=== PATIENT | male | born 1975 | race Caucasian/White ===

== ENCOUNTER 2019-01-25 10:55 | Day surgery (SDC) | payer OTHER ==
[~2019-01-25] VITALS: Ht 177.8 cm; Wt 106.4 kg
--- NOTE | 2019-01-25 11:26 | NUR ---
History, Chart, Medications and Allergies reviewed before start of procedure. Patient States Post-Procedure ride home has been arranged.
[2019-01-25] MEDS ORDERED: SUCR1 PO (11:44)
--- NOTE | 2019-01-25 12:54 | NUR ---
01/25/19 1254 Meredith Reese PATIENT DETERMINED TO BE ASA APPROPRIATE FOR PROPOFOL SEDATION PRIOR TO START OF PROCEDURE BY DR. GARCIA. 3-LEAD EKG REVIEWED WITH PHYSICIAN PRIOR TO START OF PROCEDURE. PATIENT CONFIRMS NPO STATUS AND AGREES WITH SCHEDULED PROCEDURE. History, Chart, Medications and Allergies reviewed before start of procedure. MONITOR INTACT WITH CONTINUOUS PULSE OXIMETRY AND INTERMITTENT BP. O2 VIA N/C INTACT THROUGHOUT SEDATION/PROCEDURE, 3 L. Bite Block Placed IMMEDIATELY PRESEDATION.
--- NOTE | 2019-01-25 13:36 | NUR ---
NO REDNESS NOTED AT INFILTRATION SITE, NOTICED RIGHT AWAY THAT HAD LOST IV WITH DOSE OF 20 MG PROPOFOL. INSTRUCTIONS GIVEN TO PATIENT AND SPOUSE TO MONITOR SITE AND REPORT TO PHYSICIAN IF CONCERNS.
== END 2019-01-25 23:49 | disposition home or self-care (01) ==
LOC: ORD 10:55 → ORSCMMR 10:55 → ORD 12:30
PROVIDERS: Internal Medicine Gastroenterology
PROC: 0DB98ZX Excision of Duodenum, Via Natural or Artificial Opening Endoscopic, Diagnostic (ICD-10-PCS; principal; 2019-01-25 12:30)
PROC: 0DB68ZX Excision of Stomach, Via Natural or Artificial Opening Endoscopic, Diagnostic (ICD-10-PCS; principal; 2019-01-25 12:30)
DX: D50.9 Iron deficiency anemia, unspecified (principal); K25.9 Gastric ulcer, unspecified as acute or chronic, without hemorrhage or perforation; K29.80 Duodenitis without bleeding; F17.220 Nicotine dependence, chewing tobacco, uncomplicated; R10.13 Epigastric pain; Z79.899 Other long term (current) drug therapy
CPT/HCPCS: 88305; 88342; J2704; J7120

== ENCOUNTER 2019-01-27 18:18 | Emergency (ER) | payer OTHER ==
[~2019-01-27] VITALS: Ht 177.8 cm; Wt 106.6 kg
[~2019-01-27 18:18] MED LIST: SUCR1 PO
[2019-01-27 19:16] LABS: BASOPHILS ABSOLUTE AUTO 0.06 K/mm3 (0.00-0.23); BASOPHILS PERCENT AUTO 1 % (0-2); EOSINOPHILS ABSOLUTE AUTO 0.22 K/mm3 (0.00-0.68); EOSINOPHILS PERCENT AUTO 3 % (0-6); Hematocrit 37.8 % (37.0-53.0); Hemoglobin 11.2 g/dL (13.5-17.5); IMMATURE GRAN ABSOLUTE AUTO 0.03 K/mm3 (0.00-0.10); IMMATURE GRAN PERCENT AUTO 0 % (0-1); LYMPHOCYTES ABSOLUTE AUTO 1.72 K/mm3 (0.84-5.20); LYMPHOCYTES PERCENT AUTO 24 % (21-46); MONOCYTES PERCENT AUTO 10 % (4-13); Mean Corpuscular HGB 23.8 pg (26.0-34.0); Mean Corpuscular HGB Conc 29.6 g/dL (31.5-36.5); Mean Corpuscular Volume 80 fL (80-100); Mean Platelet Volume 10.1 fL (9.1-12.4); NEUTROPHILS PERCENT AUTO 63 % (41-73); Platelet Count 340 K/mm3 (150-400); RDW Coefficient Variation 19.8 % (11.7-14.2); RDW Standard Deviation 57.4 fL (35.1-46.3); White Blood Cell Count 7.33 K/mm3 (4.00-11.30)
[2019-01-27 19:35] LABS: Alanine Aminotransfer (ALT/SGP 21 U/L (12-78); Albumin, Blood 3.4 g/dL (3.4-5.0); Albumin/Globulin Ratio 0.8 (0.8-1.8); Alk Phos 79 U/L (50-136); Anion Gap 5 mmol/L (6-16); Aspartate Aminotrans (AST/SGOT 13 U/L (12-37); Bilirubin, Total 0.3 mg/dL (0.1-1.0); Blood Urea Nitrogen 8 mg/dL (8-24); Bun/Creatinine Ratio 7.4 (12.0-20.0); CO2, Blood 26 mmol/L (21-32); Calcium, Blood 8.4 mg/dL (8.5-10.1); Chloride, Blood 106 mmol/L (98-108); Creatinine, Blood 1.08 mg/dL (0.60-1.20); Globulin, Blood 4.5 g/dL (2.2-4.0); Glomerular Filtration Rate >60 (60-); Glucose, Blood 88 mg/dL (70-99); Potassium, Blood 3.3 mmol/L (3.5-5.5); Sodium, Blood 137 mmol/L (136-145); Total Protein, Blood 7.9 g/dL (6.4-8.2)
[2019-01-27] MEDS ORDERED: OMEPRAZOLE MAGN20 M1 PO (20:29)
[2019-01-27 20:50] LABS: Source, Urine Clean Catch
[2019-01-27 20:54] LABS: Bilirubin, Urine Neg (Neg); Blood, Urine Neg (Neg); Glucose Qualitative, Urine Neg (Neg); Ketones, Urine Neg (Neg); Leukocyte Esterase, Urine Neg (Neg); Nitrite, Urine Neg (Neg); Protein, Urine Neg (Neg); Specific Gravity, Urine 1.015 (1.003-1.022); Urobilinogen, Urine 1+ (Normal)
[2019-01-27 20:56] LABS: Appearance, Urine Clear (Clear); Color, Urine Yellow (P-Yellow)
[2019-01-28] MEDS ORDERED: TRAM50 PO (16:23)
[2019-01-28] MEDS ORDERED: Percocet 5-3251 EACH PO (16:23)
[2019-01-28] MEDS ORDERED: ONDA4ODT MM (16:24)
== END 2019-01-27 22:50 | disposition home or self-care (01) ==
LOC: ER 18:18
PROVIDERS: Physician Assistant
DX: K25.9 Gastric ulcer, unspecified as acute or chronic, without hemorrhage or perforation (principal); R07.89 Other chest pain; R05 Cough; Z79.899 Other long term (current) drug therapy
CPT/HCPCS: 36415; 71046; 76705; 80053; 81003; 83690; 85025; 99284-25; A9270

== ENCOUNTER 2019-01-28 10:08 | Emergency (ER) | payer OTHER ==
[~2019-01-28] VITALS: Ht 177.8 cm; Wt 106.6 kg
[~2019-01-28 10:08] MED LIST changes: +OMEPRAZOLE MAGN20 M1 PO
[2019-01-28 12:11] LABS: BASOPHILS ABSOLUTE AUTO 0.05 K/mm3 (0.00-0.23); BASOPHILS PERCENT AUTO 1 % (0-2); EOSINOPHILS ABSOLUTE AUTO 0.17 K/mm3 (0.00-0.68); EOSINOPHILS PERCENT AUTO 3 % (0-6); Hematocrit 39.2 % (37.0-53.0); Hemoglobin 11.5 g/dL (13.5-17.5); IMMATURE GRAN ABSOLUTE AUTO 0.04 K/mm3 (0.00-0.10); IMMATURE GRAN PERCENT AUTO 1 % (0-1); LYMPHOCYTES ABSOLUTE AUTO 1.33 K/mm3 (0.84-5.20); LYMPHOCYTES PERCENT AUTO 20 % (21-46); MONOCYTES ABSOLUTE AUTO 0.72 K/mm3 (0.16-1.47); MONOCYTES PERCENT AUTO 11 % (4-13); Mean Corpuscular HGB 23.8 pg (26.0-34.0); Mean Corpuscular HGB Conc 29.3 g/dL (31.5-36.5); Mean Corpuscular Volume 81 fL (80-100); NEUTROPHILS ABSOLUTE AUTO 4.49 K/mm3 (1.96-9.15); NEUTROPHILS PERCENT AUTO 66 % (41-73); Platelet Count 296 K/mm3 (150-400); RDW Coefficient Variation 19.6 % (11.7-14.2); RDW Standard Deviation 57.8 fL (35.1-46.3); Red Blood Cell Count 4.84 M/mm3 (4.30-5.90)
[2019-01-28 12:32] LABS: Alanine Aminotransfer (ALT/SGP 20 U/L (12-78); Albumin, Blood 3.3 g/dL (3.4-5.0); Albumin/Globulin Ratio 0.8 (0.8-1.8); Alk Phos 83 U/L (50-136); Anion Gap 4 mmol/L (6-16); Aspartate Aminotrans (AST/SGOT 17 U/L (12-37); Bilirubin, Total 0.3 mg/dL (0.1-1.0); Blood Urea Nitrogen 9 mg/dL (8-24); Bun/Creatinine Ratio 7.9 (12.0-20.0); CO2, Blood 27 mmol/L (21-32); Calcium, Blood 8.7 mg/dL (8.5-10.1); Chloride, Blood 106 mmol/L (98-108); Creatinine, Blood 1.14 mg/dL (0.60-1.20); Globulin, Blood 4.4 g/dL (2.2-4.0); Glomerular Filtration Rate >60 (60-); Glucose, Blood 97 mg/dL (70-99); Potassium, Blood 4.1 mmol/L (3.5-5.5); Sodium, Blood 137 mmol/L (136-145); Total Protein, Blood 7.7 g/dL (6.4-8.2)
[2019-01-28] MEDS ORDERED: TRAM50 PO (16:23)
[2019-01-28] MEDS ORDERED: Percocet 5-3251 EACH PO (16:23)
[2019-01-28] MEDS ORDERED: ONDA4ODT MM (16:24)
== END 2019-01-28 16:33 | disposition home or self-care (01) ==
LOC: ER 10:08
PROVIDERS: Physician Assistant
DX: A09 Infectious gastroenteritis and colitis, unspecified (principal); D64.9 Anemia, unspecified; F17.220 Nicotine dependence, chewing tobacco, uncomplicated; Z79.899 Other long term (current) drug therapy
CPT/HCPCS: 36415; 74177; 80053; 83690; 85025; 99284-25; Q9967

== ENCOUNTER 2019-02-02 19:24 | Inpatient (IN) | payer OTHER ==
[~2019-02-02] VITALS: Ht 177.8 cm; Wt 101.6 kg
[~2019-02-02 19:24] MED LIST changes: +ONDA4ODT MM; +Percocet 5-3251 EACH PO; +TRAM50 PO
[2019-02-02 20:44] LABS: BASOPHILS ABSOLUTE AUTO 0.03 K/mm3 (0.00-0.23); BASOPHILS PERCENT AUTO 1 % (0-2); EOSINOPHILS ABSOLUTE AUTO 0.15 K/mm3 (0.00-0.68); EOSINOPHILS PERCENT AUTO 3 % (0-6); Hematocrit 36.4 % (37.0-53.0); Hemoglobin 10.9 g/dL (13.5-17.5); IMMATURE GRAN ABSOLUTE AUTO 0.01 K/mm3 (0.00-0.10); IMMATURE GRAN PERCENT AUTO 0 % (0-1); LYMPHOCYTES ABSOLUTE AUTO 1.12 K/mm3 (0.84-5.20); LYMPHOCYTES PERCENT AUTO 20 % (21-46); MONOCYTES ABSOLUTE AUTO 0.51 K/mm3 (0.16-1.47); MONOCYTES PERCENT AUTO 9 % (4-13); Mean Corpuscular HGB 23.5 pg (26.0-34.0); Mean Corpuscular HGB Conc 29.9 g/dL (31.5-36.5); Mean Corpuscular Volume 78 fL (80-100); NEUTROPHILS PERCENT AUTO 68 % (41-73); Platelet Count 333 K/mm3 (150-400); RDW Coefficient Variation 18.1 % (11.7-14.2); RDW Standard Deviation 51.4 fL (35.1-46.3); Red Blood Cell Count 4.64 M/mm3 (4.30-5.90); White Blood Cell Count 5.62 K/mm3 (4.00-11.30)
[2019-02-02 21:04] LABS: Alanine Aminotransfer (ALT/SGP 33 U/L (12-78); Albumin, Blood 3.1 g/dL (3.4-5.0); Albumin/Globulin Ratio 0.7 (0.8-1.8); Alk Phos 109 U/L (50-136); Anion Gap 7 mmol/L (6-16); Aspartate Aminotrans (AST/SGOT 23 U/L (12-37); Bilirubin, Total 0.2 mg/dL (0.1-1.0); Blood Urea Nitrogen 4 mg/dL (8-24); Bun/Creatinine Ratio 3.7 (12.0-20.0); CO2, Blood 27 mmol/L (21-32); Calcium, Blood 8.5 mg/dL (8.5-10.1); Chloride, Blood 103 mmol/L (98-108); Creatinine, Blood 1.08 mg/dL (0.60-1.20); Globulin, Blood 4.6 g/dL (2.2-4.0); Glomerular Filtration Rate >60 (60-); Glucose, Blood 104 mg/dL (70-99); Potassium, Blood 3.7 mmol/L (3.5-5.5); Sodium, Blood 137 mmol/L (136-145); Total Protein, Blood 7.7 g/dL (6.4-8.2)
--- NOTE | 2019-02-03 00:31 | NUR ---
TRANSFER NOTE RECEIVED HANDOFF FROM ED NURSE RICARDO. PT TRANSFERED TO MEDICAL FLOOR VIA WHEELCHAIR WNL. IV FLUIDS INFUSING @ 75 ML/HR ORDERED. PT AND FAMILY ORIENTED TO UNIT. CONSULT CALLED TO DR. WOOTEN.
[2019-02-03 02:39] LABS: Hematocrit 32.2 % (37.0-53.0); Hematocrit 32.8 % (37.0-53.0); Mean Corpuscular HGB 23.8 pg (26.0-34.0); Mean Corpuscular HGB Conc 31.1 g/dL (31.5-36.5); Mean Corpuscular Volume 77 fL (80-100); Mean Platelet Volume 9.8 fL (9.1-12.4); Platelet Count 295 K/mm3 (150-400); RDW Coefficient Variation 18.1 % (11.7-14.2); RDW Standard Deviation 50.5 fL (35.1-46.3); White Blood Cell Count 5.28 K/mm3 (4.00-11.30)
[2019-02-03 02:59] LABS: Alanine Aminotransfer (ALT/SGP 19 U/L (12-78); Albumin, Blood 2.6 g/dL (3.4-5.0); Albumin/Globulin Ratio 0.6 (0.8-1.8); Alk Phos 90 U/L (50-136); Anion Gap 7 mmol/L (6-16); Aspartate Aminotrans (AST/SGOT 14 U/L (12-37); Bilirubin, Total 0.2 mg/dL (0.1-1.0); Blood Urea Nitrogen 4 mg/dL (8-24); Bun/Creatinine Ratio 3.9 (12.0-20.0); CO2, Blood 27 mmol/L (21-32); Calcium, Blood 8.1 mg/dL (8.5-10.1); Chloride, Blood 106 mmol/L (98-108); Creatinine, Blood 1.03 mg/dL (0.60-1.20); Globulin, Blood 4.1 g/dL (2.2-4.0); Glomerular Filtration Rate >60 (60-); Glucose, Blood 108 mg/dL (70-99); Potassium, Blood 3.6 mmol/L (3.5-5.5); Sodium, Blood 140 mmol/L (136-145); Total Protein, Blood 6.7 g/dL (6.4-8.2)
--- NOTE | 2019-02-03 05:19 | NUR ---
SHIFT SUMMARY PT ADMITTED FROM ED TODAY W/ABD PAIN, VOMITING, RECTAL BLEED. PLAN IS FOR COLONOSCOPY TOMORROW. I HAVE CALLED DR. WOOTEN'S ANSWERING SERVICE FOR THE GI CONSULT. DR HA STATES THAT THE PT MAY BE ON CLEAR LIQUIDS RIGHT UP TO THE TIME OF THE PROCEDURE, AND THAT NPO IS UNECESSARY. PT HAD PREVIOUSLY HAD AN UPPER ENDOSCOPY/COLONOSCOPY ON 01/25/19 WHICH FOUND 3 ULCERS. PT HAS BEEN DIAGNOSED WITH COLLITIS. UNRELATED SYMPTOM: THE PT HAS HAD A COUGH FOR FOUR WEEKS DUE TO WHAT HE CALLS A TICKLE IN HIS THROAT. HE DENIES HAVING A COLD. OF NOTE: HE DOES CHEW 1/2 CAN CHEWING TOBACCO DAILY. [facility] DO NOT INDICATE NEED FOR BLOOD TRANSFUSION AT THIS TIME, BUT THEY ARE DOWNTRENDING SLOWLY. PT HAS NOT REQUESTED PAIN MEDICATION THIS SHIFT.
[2019-02-03 08:34] LABS: Hematocrit 33.1 % (37.0-53.0)
--- NOTE | 2019-02-03 16:15 | NUR ---
PT STARTED DRINKING HIS GOLYTLY.
[2019-02-03 16:20] LABS: Hematocrit 34.9 % (37.0-53.0); Hemoglobin 10.4 g/dL (13.5-17.5)
--- NOTE | 2019-02-03 18:49 | NUR ---
NO ACUTE CHANGES NOTED THIS SHIFT. PT IS TAKING PREP FOR A COLONOSCOPY IN THE AM. PT EXPERIENCED 1 EPISODE OF EMESIS AFTER STARTING GOLYTLY, ZOFRAN GIVEN AND PT HAS CONTINUED TO CONSUME PREP, NO FURTHER EMESIS AT THIS TIME. WILL CONTINUE TO MONITOR AND REPORT TO ONCOMING ABEL
[2019-02-03 20:37] LABS: Hematocrit 36.4 % (37.0-53.0); Hemoglobin 10.8 g/dL (13.5-17.5)
--- NOTE | 2019-02-04 04:33 | NUR ---
SHIFT SUMMARY PT ADMITTED FOR GI BLEED. NO BLEEDING REPORTED THIS SHIFT. PT CONSUMING GO LYTELY. COLONOSCOPY SCHEDULED FOR TOMORROW. PT ON A CLEAR LIQUID DIET. IV ANTIBIOTICS ARE SCHEDULED. PREVIOUS ENDOSCOPY PERFORMED ON 01/25/19 FOUND 3 GASTRIC ULCERS. PT IS A&O X4. DAILY SMOKELESS TOBACCO USER, HE REPORTS ONGOING COUGH FOR 4 WEEKS - DENIES A COLD.
--- NOTE | 2019-02-04 11:30 | NUR ---
PERMISSION FOR CARE PATIENT GAVE STUDENT PERMISSION TO PROVIDE CARE ON 02/04/19.
--- NOTE | 2019-02-04 13:37 | NUR ---
PT TO DAY SURGERY FOR COLONOSCOPY
--- NOTE | 2019-02-04 13:50 | NUR ---
02/04/19 1350 Rico Warren History, Chart, Medications and Allergies reviewed before start of procedure.MONITOR INTACT WITH CONTINUOUS PULSE OXIMETRY AND INTERMITTENT BP.3-LEAD EKG REVIEWED WITH PHYSICIAN PRIOR TO START OF PROCEDURE.O2 VIA N/C INTACT THROUGHOUT SEDATION/PROCEDURE. Patient confirms NPO status and agrees with scheduled surgery.PATIENT DETERMINED TO BE ASA APPROPRIATE FOR PROPOFOL SEDATION PRIOR TO START OF PROCEDURE BY DR. MARQUEZ.
--- NOTE | 2019-02-04 13:52 | NUR ---
History, Chart, Medications and Allergies reviewed before start of procedure.Patient confirms NPO status and agrees with scheduled surgery. Patient states colon prep results clear.Lungs clear T/O to Auscultation.
--- NOTE | 2019-02-04 18:11 | NUR ---
SHIFT SUMMARY. A&OX4, INDEPENDENT. PT IS PLEASANT AND COOPERATIVE, FAMILY IS VERY SUPPORTIVE. COLONOSCOPY COMPLETED TODAY, DR. WOOTEN IN PT'S ROOM AFTER PROCEDURE TO DISCUSS FINDINGS. DR. CHAVES CONSULTED FOR GENERAL SURGERY, OFFICE NOTIFIED. PT DENIES N/V, SOB. PT REPORTS RLQ ABD PAIN WITH COUGHING AND SNEEZING, PT DENIES NEED FOR PAIN MEDICATION. PT IS NPO AT THIS TIME PER DR. CHAVES'S RECENT ORDER.
--- NOTE | 2019-02-05 04:58 | NUR ---
SHIFT SUMMARY AOX4. DENIES N/V OR SOB. REPORTS 8-12/25 RUQ/RLQ ABD PAIN YET DENIES THE NEED FOR ANY PAIN MEDICATION. ABD IS TENDER TO PALPATION. DR. CHAVES IN ROOM LAST NIGHT & DISCUSSED SURGERY. PT HAS BEEN NPO DUE TO PLANNED SURGERY EXCEPT MEDS SINCE 0000. CALL LIGHT IN REACH & I WILL CONTINUE TO MONITOR UNTIL DAY MOY RN ASSUMES CARE.
[2019-02-05 05:00] LABS: Hematocrit 33.9 % (37.0-53.0); Hemoglobin 10.3 g/dL (13.5-17.5)
--- NOTE | 2019-02-05 11:51 | NUR ---
Pt visit this AM. Pt resting in bed and reports 8/10 pain in his right abdomen. He denies need for pain medication at this time and states the surgery should resolve his pain. Lots of family and friends at bedside during visit. Family and Pt report no concerns at this time. Pt is agreeable for palliative care to F/U after surgery. Spoke with bedside nurse Lisa and discussed case. Palliative Care will remain available.
--- NOTE | 2019-02-05 12:42 | NUR ---
PATIENT BROUGHT TO UNIT VIA PT BED. History, Chart, Medications and Allergies reviewed before start of procedure.Patient confirms NPO status and agrees with scheduled surgery. Lungs clear T/O to Auscultation. Surgical site prepped with 2% Chlorhexidine cloth wipe.
--- NOTE | 2019-02-05 19:45 | NUR ---
1944 EPIDURAL: DECREASED SENSATION WITH NO ABILITY TO DIFFERENTIATE BETWEEN COLD OR WET FROM NIPPLE LINE TO TOES. PT RATES ABD PAIN 3/10 AND TOLERABLE BUT C/O SEVERE RIGHT SHOULDER PAIN. MOMIN PATENT CLEAR ESTRELLITA URINE, STAT LOCK IN PLACE. MIDLINE KENDALL DRESSING C/D/I AND SECURED WITH ABD BINDER. CALL LIGHT IN REACH, FAMILY AT BEDSIDE.
--- NOTE | 2019-02-05 22:40 | NUR ---
2240: ATTEMP TO REPOSITION ON RIGHT SIDE FOR COMFORT UNSUCCESSFUL. PT 2 PERSON REPOSITIONED IN BED AND PROPPED WITH PILLOWS FOR COMFORT. SPOUSE HELPS PT TO PERFORM ROM ON BLE FOR COMFORT. PT CONTINUES TO C/O SIGNIFICANT RIGHT SHOULDER PAIN; PLAN TO MEDICATE WITH PO ULTRAM PER HOME.
--- NOTE | 2019-02-05 23:52 | NUR ---
2352: PT ROUSES EASILY TO VOICE AND STATES RIGHT SHOULDER PAIN HAS IMPROVED WITH PO TRAMADOL; ALSO DENIES FURTHER NAUSEA. DECREASED SENSATIONS DERMATOMES T6-L5; ANKLE PUMPS, WIGGLES TOES, SENSITIVE TO PRESSURE. PT STATES ABD PAIN WELL CONTROLLED AT THIS TIME. CALL LIGHT IN REACH.
--- NOTE | 2019-02-06 00:54 | NUR ---
0055: PT REPOSITIONED WITH FOOT OF BED ELEVATED AND NO PILLOW. EPIDURAL CATHETER PLACEMENT SECURE AND SITE WNL; PT C/O MILD LOW BACK DISCOMFORT AND DRAW SHEET REPOSITIONED. CALL LIGHT IN REACH AND SPOUSE REMAINS @ BEDSIDE.
[2019-02-06 04:50] LABS: BASOPHILS ABSOLUTE AUTO 0.02 K/mm3 (0.00-0.23); BASOPHILS PERCENT AUTO 0 % (0-2); EOSINOPHILS ABSOLUTE AUTO 0.01 K/mm3 (0.00-0.68); EOSINOPHILS PERCENT AUTO 0 % (0-6); Hematocrit 35.9 % (37.0-53.0); Hemoglobin 10.8 g/dL (13.5-17.5); IMMATURE GRAN ABSOLUTE AUTO 0.03 K/mm3 (0.00-0.10); IMMATURE GRAN PERCENT AUTO 0 % (0-1); LYMPHOCYTES ABSOLUTE AUTO 1.06 K/mm3 (0.84-5.20); LYMPHOCYTES PERCENT AUTO 15 % (21-46); MONOCYTES ABSOLUTE AUTO 0.53 K/mm3 (0.16-1.47); MONOCYTES PERCENT AUTO 7 % (4-13); Mean Corpuscular HGB 23.7 pg (26.0-34.0); Mean Corpuscular HGB Conc 30.1 g/dL (31.5-36.5); Mean Corpuscular Volume 79 fL (80-100); Mean Platelet Volume 9.9 fL (9.1-12.4); NEUTROPHILS ABSOLUTE AUTO 5.65 K/mm3 (1.96-9.15); NEUTROPHILS PERCENT AUTO 77 % (41-73); Platelet Count 400 K/mm3 (150-400); RDW Coefficient Variation 19.1 % (11.7-14.2); RDW Standard Deviation 53.5 fL (35.1-46.3); Red Blood Cell Count 4.56 M/mm3 (4.30-5.90)
[2019-02-06 05:14] LABS: Anion Gap 6 mmol/L (6-16); Blood Urea Nitrogen 4 mg/dL (8-24); Bun/Creatinine Ratio 4.4 (12.0-20.0); CO2, Blood 25 mmol/L (21-32); Calcium, Blood 7.9 mg/dL (8.5-10.1); Chloride, Blood 108 mmol/L (98-108); Glomerular Filtration Rate >60 (60-); Glucose, Blood 137 mg/dL (70-99); Potassium, Blood 3.9 mmol/L (3.5-5.5); Sodium, Blood 139 mmol/L (136-145)
--- NOTE | 2019-02-06 07:29 | NUR ---
SUMMARY: S/P RIGHT HEMICOLLECTOMY BY DR. ANDIE HALE, LOW GRADE TEMP RESOLVED WITH TCDB AND IS USE. RIGHT SHOULDER PAIN RESOLVED, ABD WELL MANAGED WTIH EPIDURAL AND PO TRAMADOL. SEE EPIDURAL ASSESMENT. TOLERATING SIPS OF WATER, MOMIN PATENT.
--- NOTE | 2019-02-06 16:48 | NUR ---
SHIFT SUMMARY PT A&OX4, VSS, POD1 R HEMICOLECTOMY, KENDALL WOUND VAC IN PLACE, EPIDURAL FOR PAIN MANAGEMENT, ALONG WITH PO ULTRAM. MOMIN PATENT & DRAINING, OFF FLOOR. SHE PO SIPS/CHIPS. REPOSITIONS SELF WELL; ICU BED MOVES INTO FULL SITTING POSITION. WILL REPORT TO ONCOMING NOC RN.
--- NOTE | 2019-02-07 05:43 | NUR ---
Pt alert and oriented x4. VSS. Patient complaining of abdominal pain, medicated as ordered. IVF and Epidural infusing; Patient on bedrest due to lack of sensation to Bilateral Lower extremities. KENDALL Dressing to abdomen; shadowing present. Nausea with emesis x1.
--- NOTE | 2019-02-07 11:14 | NUR ---
EPIDURAL ASSESSMENT COMPLETED AND PT STATES PAIN IS 7/10 AFTER PUSHING DEMAND EPIDURAL BUTTON. PT HAS FULL SENSATION IN ABD AND IS NUMB BELOW AMBILICUS DOWN TO TOES. EPIDURAL SITE IS WNL. CALL MADE TO DR. ROBBINS THE ON-CALL ANESTHESIOLOGIST, WHO TOLD THIS RN TO CALL DR. WHITMORE. PAGE MADE TO DR. WHITMORE AND ABLE TO SPEAK TO HER AT ABOUT 1000. ORDER FOR EPIDURAL TO DC. FAMILY RN ABLE TO DC PT EPIDURAL AT ABOUT 1035. PT GIVEN TRAMADOL PO FOR PAIN. WILL CTM PT STATUS.
--- NOTE | 2019-02-07 18:20 | NUR ---
SUMMARY: PT IS POD2 R [place]- COLECTOMY. PT DID WELL TODAY. VSS, A/O. EPIDURAL DC'D AND MOMIN DC'D 6 HOURS LATER PER ORDER. HAD SOME NAUSEA AND EMESIS THIS AM. BUT IS NOW TOLERATING PO PERCOCET AND SMALL SIPS OF WATER. PT DENIES ANY NUMBNESS OR TINGLING TONIGHT AND ABLE TO AMBULATE TO BATHROOM AND VOID. DENIES PASSING GAS. SURGICAL SITE WNL. WILL CTM AND REPORT TO NOC RN.
[2019-02-08 04:55] LABS: BASOPHILS ABSOLUTE AUTO 0.04 K/mm3 (0.00-0.23); BASOPHILS PERCENT AUTO 1 % (0-2); EOSINOPHILS ABSOLUTE AUTO 0.37 K/mm3 (0.00-0.68); EOSINOPHILS PERCENT AUTO 6 % (0-6); Hematocrit 35.8 % (37.0-53.0); Hemoglobin 10.7 g/dL (13.5-17.5); IMMATURE GRAN ABSOLUTE AUTO 0.06 K/mm3 (0.00-0.10); IMMATURE GRAN PERCENT AUTO 1 % (0-1); LYMPHOCYTES ABSOLUTE AUTO 1.53 K/mm3 (0.84-5.20); LYMPHOCYTES PERCENT AUTO 24 % (21-46); MONOCYTES PERCENT AUTO 9 % (4-13); Mean Corpuscular HGB 24.4 pg (26.0-34.0); Mean Corpuscular HGB Conc 29.9 g/dL (31.5-36.5); Mean Platelet Volume 9.7 fL (9.1-12.4); NEUTROPHILS ABSOLUTE AUTO 3.92 K/mm3 (1.96-9.15); NEUTROPHILS PERCENT AUTO 60 % (41-73); Platelet Count 367 K/mm3 (150-400); RDW Coefficient Variation 19.7 % (11.7-14.2); RDW Standard Deviation 57.4 fL (35.1-46.3); Red Blood Cell Count 4.39 M/mm3 (4.30-5.90); White Blood Cell Count 6.52 K/mm3 (4.00-11.30)
[2019-02-08 04:56] LABS: Mean Corpuscular Volume 82 fL (80-100)
--- NOTE | 2019-02-08 07:06 | NUR ---
SUMMARY PT UP IN HALLS TONIGHT. TOLERATING PO. VOIDING. VERB PO PAIN MEDS EFFECTIVE FOR PAIN CONTROL.VERB PLEASED EPIDURAL IS OUT. AT BEDSIED. SUPPORTIVE.
--- NOTE | 2019-02-09 06:15 | NUR ---
SHIFT SUMMARY: JACIEL HAS BEEN TOLERATING PO INTAKE WELL. HE HAS BEEN UP WALKING THE HALLS. HE REPORTS PERCOCET IS EFFECTIVE IN CONTROLLING HIS PAIN. KENDALL ON MIDLINE INCISION PATENT, NO NEW DRAINAGE. HE IS ABLE TO MAKE HIS NEEDS KNOWN. HE IS INDEPENDENT IN THE ROOM AND HALLWAY. HE IS LYING IN BED WITH HIS CALL LIGHT IN REACH.
--- NOTE | 2019-02-09 14:35 | NUR ---
DISCHARGE DC INSTRUCTIONS GIVEN TO PT BY RN. HARD SCRIPT AND PRINTED INSTRUCTIONS SENT WITH PT AND FAMILY. PT TOLERATING FOOD AND FLUIDS, VOIDING, AMBULATING IND. REPORTS MINIMAL PAIN THAT IS CONTROLLED WITH PO PAIN MEDS PRN. REPORTS NO FURTHER QUESTIONS AT THIS TIME. PERSONAL BELONGINGS SENT WITH PATIENT. PT ESCORTED TO VEHICLE WITH SEWAGE TREATMENT PLANT OPERATOR AND FAMILY.
== END 2019-02-09 14:41 | disposition home or self-care (01) | DRG 329 ==
LOC: ER 19:24 → MEDS 19:25 → ER 21:46 → MEDS 22:51 → SURS 02-05 12:56
PROVIDERS: Internal Medicine; Internal Medicine Gastroenterology; Physician Assistant; ADMIT Internal Medicine
PROC: 0DTF0ZZ Resection of Right Large Intestine, Open Approach (ICD-10-PCS; principal; 2019-02-04 14:00)
PROC: 0DBK8ZX Excision of Ascending Colon, Via Natural or Artificial Opening Endoscopic, Diagnostic (ICD-10-PCS; 2019-02-04 14:00)
DX: C19 Malignant neoplasm of rectosigmoid junction (principal); E43 Unspecified severe protein-calorie malnutrition; F17.220 Nicotine dependence, chewing tobacco, uncomplicated; K21.9 Gastro-esophageal reflux disease without esophagitis; D50.0 Iron deficiency anemia secondary to blood loss (chronic); K29.60 Other gastritis without bleeding; K25.9 Gastric ulcer, unspecified as acute or chronic, without hemorrhage or perforation
CPT/HCPCS: 36415; 80048; 80053; 82272; 82378; 83690; 83993; 85014; 85018; 85025; 85027; 85651; 86140; 86900; 86901; 88305; 88309; 96365; 96366; 96375; 96376; 99285; G0378; J0696; J1200; J1650; J2250; J2405; J2550; J2704; J3010; J7030; J7050; J7120; V2790

== ENCOUNTER 2019-03-01 10:32 | Day surgery (SDC) | payer OTHER ==
[~2019-03-01] VITALS: Ht 177.8 cm; Wt 102.8 kg
--- NOTE | 2019-03-01 11:04 | NUR ---
03/01/19 1104 Sanam Jordan PT HAS SMALL SKIN OPENING ON RIGHT CHEST. PT STATES IT WAS A PIMPLE THAT HE "MESSED WITH". DR CHAVES & DR LEE NOTIFIED.
--- NOTE | 2019-03-01 13:05 | NUR ---
03/01/19 Brando5 Shanthi Burk PATIENT REMAINS ON GURNEY, AND NPO TILL RESULTS OF XRAY. FAMILY TO BEDSIDE
== END 2019-03-01 13:24 | disposition home or self-care (01) ==
LOC: ORSCSDS 10:32
PROVIDERS: Surgery
PROC: 0JH60WZ Insertion of Totally Implantable Vascular Access Device into Chest Subcutaneous Tissue and Fascia, Open Approach (ICD-10-PCS; principal; 2019-03-01 11:45)
DX: C18.2 Malignant neoplasm of ascending colon (principal); Z87.891 Personal history of nicotine dependence; Z79.899 Other long term (current) drug therapy
CPT/HCPCS: 77001; C1788; J0690; J1100; J1642; J1885; J2001; J2405; J2704; J3010; J7120

== ENCOUNTER 2019-04-10 13:20 | Day surgery (SDC) | payer OTHER ==
--- NOTE | 2019-04-10 14:02 | NUR ---
PT CAME INTO [facility] FOR CHEMO PUMP DC AND PORT FLUSH. PT REQUESTING IV HYDRATION. CALL PLACED TO [facility], SPOKE WITH IRA MARTINEZ, ORDER REC'D FOR 1 LITER NS.
== END 2019-04-10 14:51 | disposition home or self-care (01) ==
LOC: ATC 13:20
DX: C18.3 Malignant neoplasm of hepatic flexure (principal); D50.9 Iron deficiency anemia, unspecified; Z87.891 Personal history of nicotine dependence
CPT/HCPCS: 96360; J1642; J7030

== ENCOUNTER 2019-05-01 08:40 | Day surgery (SDC) | payer OTHER ==
[~2019-05-01] VITALS: Ht 177.8 cm; Wt 107.7 kg
--- NOTE | 2019-05-01 13:54 | NUR ---
05/01/19 1354 Zita Pride MEDIPORT FLUSHED WITH 5ML NACL IN A 10ML SYRINGE & THEN FLUSHED WITH 5ML HEPARIN 100U/ML/5ML & CLAMPED AT 1/2ML. MEDIPORT THEN DEACCESSED WITH ONE TINY BEAD OF BLOOD AFTER NEEDLE PULLED OUT. SITE COVERED WITH BANDAID.
== END 2019-05-01 11:25 | disposition home or self-care (01) ==
LOC: ORSCSDS 08:40
PROVIDERS: Internal Medicine Gastroenterology
PROC: 0DB68ZX Excision of Stomach, Via Natural or Artificial Opening Endoscopic, Diagnostic (ICD-10-PCS; principal; 2019-05-01 10:30)
DX: D50.9 Iron deficiency anemia, unspecified (principal); K29.00 Acute gastritis without bleeding; Z87.11 Personal history of peptic ulcer disease; Z85.038 Personal history of other malignant neoplasm of large intestine; Z87.891 Personal history of nicotine dependence; Z79.899 Other long term (current) drug therapy
CPT/HCPCS: 88305; 88342; J1642; J2704; J7120

== ENCOUNTER 2019-06-24 00:09 | Day surgery (SDC) | payer OTHER ==
[~2019-06-24 00:09] MED LIST changes: +ZOFRAN8 MG PO
[2019-06-24] MEDS ORDERED: Hydrocodone-Ap1 EA23 PO (15:34)
[2019-06-24] MEDS ORDERED: METO5A PO (15:35)
[2019-06-24] MEDS ORDERED: HEPARIN 50500 UNIT/5 IV (15:46)
== END 2019-06-24 15:11 | disposition home or self-care (01) ==
LOC: ATC 00:09
DX: C18.2 Malignant neoplasm of ascending colon (principal); F17.220 Nicotine dependence, chewing tobacco, uncomplicated
CPT/HCPCS: J1642; J7030

== ENCOUNTER 2019-07-05 00:50 | Day surgery (SDC) | payer OTHER ==
[~2019-07-05 00:50] MED LIST changes: +HEPARIN 50500 UNIT/5 IV; +Hydrocodone-Ap1 EA23 PO; +METO5A PO
== END 2019-07-05 11:01 | disposition home or self-care (01) ==
LOC: ATC 00:50
DX: C18.2 Malignant neoplasm of ascending colon (principal); F17.220 Nicotine dependence, chewing tobacco, uncomplicated
CPT/HCPCS: 96360; J1642; J7030

== ENCOUNTER 2020-03-16 07:10 | Day surgery (SDC) | payer OTHER ==
[~2020-03-16] VITALS: Ht 177.8 cm; Wt 112.6 kg
[~2020-03-16 07:10] MED LIST changes: +PREG100 PO
--- NOTE | 2020-03-16 07:43 | NUR ---
03/16/20 0743 Chuyita Talley 1 TRY RIGHT HAND MOVED WENT ABOVE CML
== END 2020-03-16 09:18 | disposition home or self-care (01) ==
LOC: ORSCSDS 07:10
PROVIDERS: Internal Medicine Gastroenterology
PROC: 0DJD8ZZ Inspection of Lower Intestinal Tract, Via Natural or Artificial Opening Endoscopic (ICD-10-PCS; principal; 2020-03-16 08:30)
DX: Z85.038 Personal history of other malignant neoplasm of large intestine (principal); D50.9 Iron deficiency anemia, unspecified; K64.8 Other hemorrhoids; Z87.891 Personal history of nicotine dependence; Z79.899 Other long term (current) drug therapy
CPT/HCPCS: J0330; J0461; J2405; J2704; J7120

== ENCOUNTER 2023-12-08 06:28 | Day surgery (SDC) | payer BC, OTHER ==
[2023-12-08] VITALS (12 sets, daily range): BP systolic 107–133; BP diastolic 78–99
[~2023-12-08] VITALS: Ht 177.8 cm; Wt 115.2 kg
[~2023-12-08 06:28] MED LIST changes: +Lactated Ringer's 1,000 ML IV SCH
[2023-12-08] MEDS ORDERED: propofoL 20 ML IV ONE (08:10)
--- NOTE | 2023-12-08 08:26 | NUR ---
12/08/23 0826 Gris Hoover HISTORY, CHART, MEDICATIONS AND ALLERGIES REVIEWED BEFORE START OF PROCEDURE. PATIENT CONFIRMS NPO STATUS AND AGREES WITH SCHEDULED PROCEDURE. 3-LEAD EKG REVIEWED WITH PHYSICIAN PRIOR TO START OF PROCEDURE. MONITOR INTACT WITH CONTINUOUS PULSE OXIMETRY,CAPNOGRAPHY, 3-LEAD EKG, INTERMITTENT BP. SUPPLEMENTAL O2 TO BE TITRATED THROUGHOUT PROCEDURE TO MAINTAIN O2 SATURATION ABOVE 90%. PATIENT DETERMINED TO BE ASA APPROPRIATE FOR PROPOFOL SEDATION PRIOR TO START OF PROCEDURE BY
--- NOTE | 2023-12-08 08:44 | NUR ---
Patient States Post-Procedure ride home has been arranged. PT AWAKE AND ALERT. OFFERED PO FLUIDS, TOLERATED. NO PAINOR NAUSEA NOTED. UNDERSTOOD TEACHING. .
== END 2023-12-08 23:47 | disposition home or self-care (01) ==
LOC: ORSCMMR 06:28 → ORSCSDS 08:00 → ORD 08:00 → ORSCMMR 08:00
PROVIDERS: Surgery
PROC: 0DJD8ZZ Inspection of Lower Intestinal Tract, Via Natural or Artificial Opening Endoscopic (ICD-10-PCS; principal; 2023-12-08 08:00)
DX: Z85.038 Personal history of other malignant neoplasm of large intestine (principal); E78.2 Mixed hyperlipidemia; Z87.891 Personal history of nicotine dependence
CPT/HCPCS: J2704; J7120

== ENCOUNTER 2024-04-03 05:45 | Day surgery (SDC) | payer OTHER ==
[~2024-04-03] VITALS: Ht 177.8 cm; Wt 119.0 kg
[2024-04-03] VITALS (12 sets, daily range): BP systolic 121–133; BP diastolic 75–89
[~2024-04-03 05:45] MED LIST changes: +ALLEGRA ALLERG180 MG PO; +IBUP800 PO; -Lactated Ringer's 1,000 ML IV SCH; +MULVITA PO; +[UNRECOGNIZED DRUG - OTHER]
[2024-04-03] MEDS ORDERED: Lactated Ringer's 1,000 ML IV SCH (06:25)
[2024-04-03] MEDS ORDERED: CeFAZolin Sodium 2,000 MG in NS 100 ML IV SCH (06:25)
[2024-04-03] MEDS ORDERED: CeFAZolin Sodium 2,000 MG VIAL ONE (06:40)
[2024-04-03] MEDS ORDERED: Ondansetron HCl 2 MG / ML 2ML Vial ONE (07:01)
[2024-04-03] MEDS ORDERED: Dexamethasone Sod Phos 10 MG/ML 1ML VIAL ONE (07:01)
[2024-04-03] MEDS ORDERED: Lidocaine HCl 2% 20 ML MDV ONE (07:01)
[2024-04-03] MEDS ORDERED: Rocuronium Bromide 10 MG/ML 5ML Injection IV ONE (07:01)
[2024-04-03] MEDS ORDERED: propofoL 20 ML IV ONE (07:02)
[2024-04-03] MEDS ORDERED: FentaNYL Citrate 50 MCG/ML 2 ML Injection ONE (07:02)
[2024-04-03] MEDS ORDERED: Bupivacaine 0.5% HCl 5 MG/ML 30MLVIAL ONE (07:10)
--- NOTE | 2024-04-03 07:14 | NUR ---
History, Chart, Medications and Allergies reviewed before start of procedure. Lungs clear T/O to Auscultation. Pre-Op teaching done. Pt verbalizes understanding. Patient reports completing Chlorhexadine shower X2 prior to admission to hospital. Patient confirms NPO status and agrees with scheduled surgery.
[2024-04-03] MEDS ORDERED: HYDROcodone 5-APAP 325 TAB PO PRN (09:20)
--- NOTE | 2024-04-03 09:45 | NUR ---
PT TO DAY SURGERY STEP DOWN FROM PACU WITH HERNIA REPAIR; BEDSIDE REPORT RECEIVED. PT IS SLEEPY, BUT RESPONDS TO VOICE AND ABLE TO MOVE SELF IN BED. PT HAS 1 ABD INCISION THAT IS COVERED WITH GUAZE AND TEGADERM AND IT IS C/D/I. PT HAS ABD BINDER IN PLACE. DENIES PAIN.
--- NOTE | 2024-04-03 09:59 | NUR ---
PT TOLERATING PO FLUIDS
--- NOTE | 2024-04-03 10:01 | NUR ---
ICE PACK GIVEN TO PT. INCISION REMAINS C/D/I
--- NOTE | 2024-04-03 10:28 | NUR ---
PT TOLERATING CRACKERS Discharge instructions reviewed with patient. Patient verbalizes understanding. Copy given to patient to take home. Patient States Post-Procedure ride home has been arranged.
--- NOTE | 2024-04-03 10:42 | NUR ---
Patient up to Ambulate independently. Gait steady. Discharged via wheelchair to private car for ride home.
== END 2024-04-03 23:00 | disposition home or self-care (01) ==
LOC: ORSCMMR 05:45 → ORD 07:30 → ORSCMMR 23:00
PROVIDERS: Surgery
PROC: 0WUF0JZ Supplement Abdominal Wall with Synthetic Substitute, Open Approach (ICD-10-PCS; principal; 2024-04-03 07:30)
DX: K43.0 Incisional hernia with obstruction, without gangrene (principal); E78.5 Hyperlipidemia, unspecified; Z85.038 Personal history of other malignant neoplasm of large intestine; Z79.899 Other long term (current) drug therapy; Z87.891 Personal history of nicotine dependence
CPT/HCPCS: A9270; C1781; J0690; J1100; J2405; J2704; J3010; J7120